=== PATIENT | male | born 1970 | race Caucasian/White ===

== ENCOUNTER 2018-06-14 20:05 | Emergency (ER) | payer OTHER ==
[~2018-06-14] VITALS: Ht 170.2 cm; Wt 80.7 kg
[2018-06-14] MEDS ORDERED: CYMBALTA20 MG PO (20:17)
[2018-06-14] MEDS ORDERED: CHLORTHALIDONE25 MG PO (20:17)
--- NOTE | 2018-06-15 06:27 | EKG ---
[facility] [address] [facility] [place] [address] Signed Normal sinus rhythm Possible Left atrial enlargement Borderline ECG No previous ECGs available Confirmed by ALESSANDRO LIPSCOMB MD ([id number]) on 06/15/2018 6:27:06 AM Electronically Signed By: ALESSANDRO LIPSCOMB MD 06/15/18 0627 PATIENT NAME: RAMON ZAMORANO Electrocardiogram DATE OF : 66 PHYSICIAN: ALESSANDRO LIPSCOMB MD REPORT #: [id number] REPORT IS CONFIDENTIAL AND NOT TO BE RELEASED WITHOUT AUTHORIZATION
== END 2018-06-14 22:17 | disposition home or self-care (01) ==
LOC: ED 20:05
DX: I10 Essential (primary) hypertension (principal); Z79.899 Other long term (current) drug therapy
CPT/HCPCS: 80053; 84484; 85025; 93005; 93010; 99283

== ENCOUNTER 2021-01-13 14:29 | Emergency (ER) | payer OTHER ==
[~2021-01-13] VITALS: Ht 170.2 cm; Wt 80.7 kg
[~2021-01-13 14:29] MED LIST: CHLORTHALIDONE25 MG PO; CYMBALTA20 MG PO
[2021-01-13] MEDS ORDERED: LEXAPRO10 MG PO (14:40)
--- NOTE | 2021-01-15 13:13 | EKG ---
[facility] [address] [place], [place] [address] Signed Normal sinus rhythm Normal ECG When compared with ECG of 14-JUN-2018 20:12, No significant change was found Confirmed by RAMON CHAPARRO DO ([id number]) on 01/15/2021 1:13:07 PM Electronically Signed By: RAMON CHAPARRO DO 01/15/21 1313 PATIENT NAME: RAMON ZAMORANO Electrocardiogram DATE OF : 66 PHYSICIAN: RAMON CHAPARRO DO REPORT #: [id number] REPORT IS CONFIDENTIAL AND NOT TO BE RELEASED WITHOUT AUTHORIZATION
== END 2021-01-13 17:18 | disposition home or self-care (01) ==
LOC: ED 14:29
DX: R55 Syncope and collapse (principal); K64.9 Unspecified hemorrhoids; I10 Essential (primary) hypertension; Z79.899 Other long term (current) drug therapy
CPT/HCPCS: 80053; 83735; 84484; 85025; 93005; 93010; 99284-25

== ENCOUNTER 2022-06-22 07:48 | Emergency (ER) | payer OTHER ==
[~2022-06-22] VITALS: Ht 170.2 cm; Wt 80.7 kg
[~2022-06-22 07:48] MED LIST changes: +LEXAPRO10 MG PO
--- NOTE | 2022-06-23 20:10 | EKG ---
[facility] [address] [place] [address] Signed Sinus bradycardia Otherwise normal ECG When compared with ECG of 13-JAN-2021 14:56, Nonspecific T wave abnormality now evident in Lateral leads Confirmed by Nilda Samson MD () on 06/23/2022 8:10:27 PM Electronically Signed By: NILDA SAMSON MD 06/23/222009 PATIENT NAME: RAMON ZAMORANO Electrocardiogram DATE OF : 66 PHYSICIAN: NILDA SAMSON MD REPORT #: [id number] REPORT IS CONFIDENTIAL AND NOT TO BE RELEASED WITHOUT AUTHORIZATION
== END 2022-06-22 10:15 | disposition home or self-care (01) ==
LOC: ED 07:48
DX: R55 Syncope and collapse (principal); I10 Essential (primary) hypertension; Z79.899 Other long term (current) drug therapy
CPT/HCPCS: 36415; 80053; 83735; 84484; 85025; 93005; 93010; 99284-25; J7030